=== PATIENT | female | born 1990 | race Caucasian/White ===

== ENCOUNTER 2016-05-12 18:23 | Emergency (ER) | payer MEDICAID, OTHER ==
[~2016-05-12] VITALS: Ht 160 cm; Wt 113.4 kg
[~2016-05-12 18:23] MED LIST: FERROUS SULFATE; FOLATE1 MG PO; MOTRIN800 MG PO; PRENATAL VITAMI1 T10 PO
[2016-05-12 18:37] VITALS: BP 113/89
--- NOTE | 2016-05-12 20:01 | NUR ---
PATIENT PRESENTS TO ED WITH COUGH NON-PRODUCTIVE FOR 3 WEEKS RADIATES TO THE UPPER BACK 9/10 PAIN . PT DENIES N/V/D; SKIN IS PINK/WARM/DRY; AAOX4 WITH EVEN AND STEADY GAIT; LUNGS CLEAR BL; HR EVEN AND REGULAR; PT DENIES ANY FEVER, CP, SOB, AT THIS TIME; PATIENT STATES PAIN OF 9/10 AT THIS TIME; VSS; PATIENT POSITIONED FOR COMFORT; HOB ELEVATED; BEDRAILS UP X2; BED DOWN. ER MD MADE AWARE OF PT STATUS.
--- NOTE | 2016-05-12 20:30 | NUR ---
Dr. Chavez evaluating patient at bedside.
[2016-05-12] MEDS ORDERED: predniSONE 20 MG TAB PO ONE (20:35)
[2016-05-12] MEDS ORDERED: ACETAMIN/CODEINE 120/12MG-5ML 5 ML UDC PO ONE (20:35)
[2016-05-12 21:00] VITALS: BP 114/77
--- NOTE | 2016-05-12 21:00 | NUR ---
Patient discharged with v/s stable. Written and verbal after care instructions given and explained. Patient alert, oriented and verbalized understanding of instructions. Ambulatory with steady gait. All questions addressed prior to discharge. ID band removed. Patient advised to follow up with PMD. Rx of GUAIATUSSIN AC LIQ AND PREDISONE 50MG given. Patient educated on indication of medication including possible reaction and side effects. Opportunity to ask questions provided and answered. Addendum: 05/12/16 at 2102 by MEDND Patient discharged with v/s stable. Written and verbal after care instructions given and explained. Patient alert, oriented and verbalized understanding of instructions. Ambulatory with steady gait. All questions addressed prior to discharge. ID band removed. Patient advised to follow up with PMD. Rx of GUAIATUSSIN AC LIQ AND PREDISONE 50MG given. Patient educated on indication of medication including possible reaction and side effects. Opportunity to ask questions provided and answered. PT STATE SHE IS ALERT AND ORIENTED, PT DENIES FEELING ANY SENSATION OF SLEEPINESS OR DROWSINESS, PT STATES SHE IS ABLE TO DRIVE HOME SAFELY. PT IS ABLE TO VERIFY NAME, , LOCATION HERE AT [facility], AND DATE AND TIME, ER MD DR QUINTERO AWARE
== END 2016-05-12 21:00 | disposition home or self-care (01) ==
LOC: MED 18:31
DX: J20.9 Acute bronchitis, unspecified (principal); Z88.0 Allergy status to penicillin
CPT/HCPCS: 71020; 99284; J7512

== ENCOUNTER 2016-07-27 07:20 | Emergency (ER) | payer MEDICAID ==
[~2016-07-27] VITALS: Ht 157.5 cm; Wt 113.4 kg
[~2016-07-27 07:20] MED LIST changes: -FERROUS SULFATE; -FOLATE1 MG PO; +FOLI1TAB19 PO; +IBUP-974 PO; -MOTRIN800 MG PO; +PREN-385 PO; -PRENATAL VITAMI1 T10 PO
[2016-07-27 07:39] VITALS: BP 121/83
--- NOTE | 2016-07-27 07:39 | NUR ---
PT TO BED 7.
--- NOTE | 2016-07-27 07:42 | NUR ---
Dr. Rivers evaluating patient at bedside.
--- NOTE | 2016-07-27 07:44 | NUR ---
PT TRANSFERRED TO BED 8 FOR CRAPS MANAGER BED.
--- NOTE | 2016-07-27 07:57 | NUR ---
PT STATES VAGINAL BLEEDING SINCE 3AM. PT 6WKS . DENIES PAIN. DENIES PMH. NKDA. DENIES N/V/D; SKIN IS PINK/WARM/DRY; AAOX4 WITH EVEN AND STEADY GAIT; LUNGS CLEAR BL; HR EVEN AND REGULAR; PT DENIES ANY FEVER, CP, SOB, OR COUGH AT THIS TIME; PATIENT STATES PAIN OF 0/10 AT THIS TIME; VSS; PATIENT POSITIONED FOR COMFORT; HOB ELEVATED; BEDRAILS UP X2; BED DOWN. ER MD MADE AWARE OF PT STATUS.
--- NOTE | 2016-07-27 07:59 | NUR ---
Giancarlo rincon in [facility] - 07/27/16 at 0759 by CHARLESZ PT LEFT FOR US PER TECH
--- NOTE | 2016-07-27 07:59 | NUR ---
Patient taken to US via wheelchair per tech.
[2016-07-27 08:02] LABS: APPEARANCE,URINE HAZY (CLEAR); BILIRUBIN,URINE NEGATIVE (NEGATIVE); BLOOD, URINE 3+ (NEGATIVE); COLOR,URINE RED (YELLOW); LEUKOCYTE ESTERASE ,URINE NEGATIVE (NEGATIVE); NITRITE, URINE NEGATIVE (NEGATIVE); PROTEIN,URINE NEGATIVE (NEGATIVE); UGLUCOSE NEGATIVE (NEGATIVE); UROBILINOGEN,URINE 0.2 EU/dL (0.2 - 1)
--- NOTE | 2016-07-27 08:18 | NUR ---
Giancarlo rincon in [facility] - 07/27/16 at 0819 by TUAN PT BACK TO BED 8 VIA WHEELCHAIR.
--- NOTE | 2016-07-27 08:18 | NUR ---
Patient back from US via wheelchair per tech.
[2016-07-27 08:21] LABS: BASOPHILS # (AUTO) 0.2 K/uL (0.00-0.22); BASOPHILS % (AUTO) 1.9 % (0.0-2.0); EOSINOPHILS # (AUTO) 0.2 K/uL (0-0.4); EOSINOPHILS % (AUTO) 1.6 % (0.0-4.0); HEMATOCRIT 37.1 % (36-48); HEMOGLOBIN 11.4 g/dL (12.0-16.0); LYMPHOCYTES # (AUTO) 3.2 K/uL (2.5-16.5); LYMPHOCYTES % (AUTO) 30.2 % (20.5-51.1); MEAN CORPUSCULAR HEMOGLOBIN 22 pg (27-31); MEAN CORPUSCULAR HGB CONC 31 g/dL (33-37); MEAN CORPUSCULAR VOLUME 70 fL (80-94); MONOCYTES # (AUTO) 0.5 K/uL (0.8-1.0); MONOCYTES % (AUTO) 4.5 % (1.7-9.3); NEUTROPHILS # (AUTO) 6.4 K/uL (1.8-7.7); NEUTROPHILS % (AUTO) 61.8 % (42.2-75.2); PLATELET COUNT (AUTO) 303 K/uL (140-450); RED CELL DISTRIBUTION WIDTH 14.7 % (11.6-13.7); WHITE BLOOD COUNT (AUTO) 10.5 K/uL (4.8-10.8)
[2016-07-27 08:37] LABS: BACTERIA,URINE 0-2 (RARE) /HPF (None Seen); RBC,URINE >100 /HPF (0-5); WBC,URINE 0-5 (RARE) /HPF (0-5)
--- NOTE | 2016-07-27 09:15 | NUR ---
AT BEDSIDE TO EXPLAIAIN TO PT SHE HAS MISCARRIAGE.
[2016-07-27 09:36] VITALS: BP 125/80
--- NOTE | 2016-07-27 09:36 | NUR ---
Patient discharged with v/s stable. Written and verbal after care instructions given and explained. Patient verbalized understanding. Ambulatory with steady gait. All questions addressed prior to discharge. Advised to follow up with PMD.
== END 2016-07-27 09:36 | disposition home or self-care (01) ==
LOC: MED 07:20
DX: O03.9 Complete or unspecified spontaneous abortion without complication (principal); Z3A.01 Less than 8 weeks gestation of pregnancy
CPT/HCPCS: 36415; 76817; 81001; 81025; 84702; 85025; 86900; 86901; 99285

== ENCOUNTER 2020-08-11 18:19 | Emergency (ER) | payer MEDICAID ==
[~2020-08-11] VITALS: Ht 160 cm; Wt 114.3 kg
[~2020-08-11 18:19] MED LIST changes: +ACET-9527 PO; +FERR325E14 PO; -FOLI1TAB19 PO; -IBUP-974 PO; +LEVO750T51 PO; -PREN-385 PO
[2020-08-11 18:30] VITALS: BP 132/76
--- NOTE | 2020-08-11 18:46 | NUR ---
C/O GENERALIZED ABDOMINAL PAIN SINCE THIS AM RADIATING TO BACK; RAN OUT OF PAIN MEDICATION YESTERDAY HX APPENDECTOMY 08/05/20 DR. BRICEÑO
--- NOTE | 2020-08-11 19:00 | NUR ---
Dr. Lund at the bedside evaluating patient.
[2020-08-11] MEDS ORDERED: MORPHINE SULFATE 4 MG/ML SYR IVP ONE (19:10)
[2020-08-11] MEDS ORDERED: NACL 0.9% 1,000 ML IV SCH (19:10)
[2020-08-11] MEDS ORDERED: ONDANSETRON 4 MG/2 ML VIAL IVP ONE (19:10)
--- NOTE | 2020-08-11 19:11 | NUR ---
Report given to CYNTHIA Juarez for continuation of care.
[2020-08-11 19:23] LABS: BILIRUBIN,URINE NEGATIVE (NEGATIVE); BLOOD, URINE 3+ (NEGATIVE); COLOR,URINE YELLOW (YELLOW); LEUKOCYTE ESTERASE ,URINE 2+ (NEGATIVE); NITRITE, URINE NEGATIVE (NEGATIVE); PH,URINE 7.5 (5.0-9.0); UGLUCOSE NEGATIVE (NEGATIVE)
[2020-08-11 19:51] LABS: BASOPHILS # (AUTO) 0.1 K/uL (0.00-0.22); BASOPHILS % (AUTO) 0.7 % (0.0-2.0); EOSINOPHILS # (AUTO) 0.2 K/uL (0-0.4); EOSINOPHILS % (AUTO) 1.2 % (0.0-4.0); HEMATOCRIT 37.7 % (36-48); LYMPHOCYTES # (AUTO) 3.3 K/uL (2.5-16.5); LYMPHOCYTES % (AUTO) 24.1 % (20.5-51.1); MEAN CORPUSCULAR HEMOGLOBIN 23 pg (27-31); MEAN CORPUSCULAR HGB CONC 32 g/dL (33-37); MEAN CORPUSCULAR VOLUME 72.1 fL (80-94); MONOCYTES # (AUTO) 0.7 K/uL (0.8-1.0); MONOCYTES % (AUTO) 5.1 % (1.7-9.3); NEUTROPHILS # (AUTO) 9.5 K/uL (1.8-7.7); NEUTROPHILS % (AUTO) 68.9 % (42.2-75.2); PLATELET COUNT (AUTO) 240 K/uL (140-450); RED BLOOD CELL COUNT(AUTO) 5.23 MIL/uL (4.20-5.40); RED CELL DISTRIBUTION WIDTH 17.2 % (11.6-13.7); WHITE BLOOD COUNT (AUTO) 13.8 K/uL (4.8-10.8)
[2020-08-11 20:05] LABS: ANION GAP 20.8 (8-16); CARBON DIOXIDE 24.5 mmol/L (21-32); CREATININE 0.7 mg/dL (0.6-1.3); POTASSIUM 4.3 mmol/L (3.5-5.1)
[2020-08-11 20:09] LABS: APPEARANCE,URINE HAZY (CLEAR)
[2020-08-11 20:11] LABS: ALBUMIN 3.6 g/dL (3.4-5.0); TOTAL BILIRUBIN 0.3 mg/dL (0.0-1.0)
[2020-08-11 20:16] LABS: RBC,URINE 0-5 /HPF (0-5)
--- NOTE | 2020-08-11 20:20 | NUR ---
pt taken to CT via w/c
--- NOTE | 2020-08-11 20:39 | NUR ---
pt returned from CT via w/c.
[2020-08-11] MEDS ORDERED: cefTRIAXone 1,000 MG VIAL ONE (21:03)
[2020-08-11] MEDS ORDERED: CEPH-588 PO (22:25)
[2020-08-11] MEDS ORDERED: ONDA-24 SL (22:25)
[2020-08-11] MEDS ORDERED: ACET-8386 PO (22:25)
[2020-08-11] MEDS ORDERED: DOCU-299 PO (22:28)
--- NOTE | 2020-08-11 22:40 | NUR ---
IV removed, catheter intact and site benign. Applied folded 4x4 gauze and tape to stop bleeding.
--- NOTE | 2020-08-11 22:44 | NUR ---
Patient discharged with v/s stable. Written and verbal after care instructions given and explained. Patient alert, oriented and verbalized understanding of instructions. Ambulatory with steady gait. All questions addressed prior to discharge. ID band removed. Patient advised to follow up with PMD. Rx of ZOFRAN, KEFLEX, COLACE, AND NORCO given. Patient educated on indication of medication including possible reaction and side effects. Opportunity to ask questions provided and answered.
== END 2020-08-11 22:44 | disposition home or self-care (01) ==
LOC: MED 18:19
DX: N39.0 Urinary tract infection, site not specified (principal); G89.18 Other acute postprocedural pain; R10.84 Generalized abdominal pain; R42 Dizziness and giddiness; Z90.49 Acquired absence of other specified parts of digestive tract; Z79.899 Other long term (current) drug therapy; Z79.2 Long term (current) use of antibiotics; Z79.891 Long term (current) use of opiate analgesic
CPT/HCPCS: 36415; 74177; 80053; 81001; 81025; 83605; 83690; 85025; 87040; 87086; 96361; 96365; 96375; 99285; J0696; J2270; J2405; J7030; Q9967

== ENCOUNTER 2021-05-26 09:06 | Emergency (ER) | payer MEDICAID ==
[~2021-05-26] VITALS: Ht 157.5 cm; Wt 127.0 kg
[~2021-05-26 09:06] MED LIST changes: +ACET-8386 PO; -ACET-9527 PO; +CEPH-588 PO; +DOCU-299 PO; +ONDA-188 SL
[2021-05-26 09:11] VITALS: BP 128/75
--- NOTE | 2021-05-26 09:15 | NUR ---
PT ABULATED TO BED 7
--- NOTE | 2021-05-26 09:22 | NUR ---
AT PT BEDSIDE
--- NOTE | 2021-05-26 09:36 | NUR ---
31 Y/O FEMALE BIB [facility] C/O EPIGASTRIC PAIN RADIATING BURNING CONSTANT TYPE OF PAIN RATED 8/10. PAIN RADIATES TO BILATERAL FLANKS SINCE YESTERDAY. ABDOMEN IS TENDER TO TOUCH. PT DENIES VOMITING,DIARRHEA, FEVERS. PT DENIES SOB, CHEST PAIN, FEVER OR CHILLS. BED IN LOWEST POSITION. BED RAIL X1. PT ALERT AND ORIENTED X4. MEDHX: DENIES ALLERGIES: NKA
[2021-05-26] MEDS ORDERED: KETOROLAC 60 MG/2 ML VIAL IM ONE (09:40)
[2021-05-26] MEDS ORDERED: ONDANSETRON 4 MG ODT PO ONE (09:40)
[2021-05-26] MEDS ORDERED: DICYCLOMINE HCL LIQUID 20 MG, ALUMINUM HYD/MAG/SIMETHICONE 30 ML, LIDOCAINE VISCOUS 2% ... PO ONE ×3 (09:40)
[2021-05-26] MEDS ORDERED: DICYCLOMINE HCL LIQUID 10 MG/5 ML UDC ONE (09:46)
[2021-05-26] MEDS ORDERED: ALUMINUM HYD/MAG/SIMETHICONE 30 ML UDC ONE (09:46)
[2021-05-26] MEDS ORDERED: ONDA8TAB87 PO (09:59)
[2021-05-26] MEDS ORDERED: OMEP40EC24 PO (09:59)
[2021-05-26] MEDS ORDERED: IBUP-2213 PO (09:59)
[2021-05-26 10:56] VITALS: BP 128/75
--- NOTE | 2021-05-26 10:58 | NUR ---
Patient discharged with v/s stable. Written and verbal after care instructions given and explained. Patient alert, oriented and verbalized understanding of instructions. Ambulatory with steady gait. All questions addressed prior to discharge. ID band removed. Patient advised to follow up with PMD. Rx of IBUPROFEN, PRILOSAC, ZOFRAN given. Patient educated on indication of medication including possible reaction and side effects. Opportunity to ask questions provided and answered.
== END 2021-05-26 10:56 | disposition home or self-care (01) ==
LOC: MED 09:06
DX: R10.13 Epigastric pain (principal); R11.0 Nausea; R07.9 Chest pain, unspecified; Z79.899 Other long term (current) drug therapy; Z90.49 Acquired absence of other specified parts of digestive tract
CPT/HCPCS: 81002; 81025; 96372; 99283; J1885; Q0162

== ENCOUNTER 2021-09-28 07:48 | Emergency (ER) | payer MEDICAID ==
[~2021-09-28] VITALS: Ht 157.5 cm; Wt 126.1 kg
[~2021-09-28 07:48] MED LIST changes: +IBUP-2213 PO; -LEVO750T51 PO; +LEVO750T75 PO; +OMEP40EC24 PO; +ONDA8TAB87 PO
[2021-09-28 07:51] VITALS: BP 120/96
--- NOTE | 2021-09-28 07:59 | NUR ---
PATIENT AMBULATED TO BED 8.
--- NOTE | 2021-09-28 08:06 | NUR ---
Dr. Julian evaluating patient at bedside.
--- NOTE | 2021-09-28 08:21 | NUR ---
Radiology at bedside.
[2021-09-28] MEDS: KETOROLAC 60 MG/2 ML VIAL IM ONE (08:28)
[2021-09-28] MEDS ORDERED: CYCL-711 PO (08:33)
[2021-09-28] MEDS ORDERED: NAPR-54 PO (08:33)
[2021-09-28] MEDS ORDERED: LID5T TP (08:33)
--- NOTE | 2021-09-28 08:50 | NUR ---
Patient discharged with v/s stable. Written and verbal after care instructions given. Patient alert, oriented and verbalized understanding of instructions. Ambulatory with steady gait. All questions addressed prior to discharge. ID band removed. Patient advised to follow up with PMD. Rx of Flexeril, Lidoderm and Naproxen given. Opportunity to ask questions provided and answered.
--- NOTE | 2021-09-28 08:51 | NUR ---
Chart checked and completed. The patient's care was reviewed and supervised by Keara Mena RN.
== END 2021-09-28 08:50 | disposition home or self-care (01) ==
LOC: MED 07:48
DX: S29.012A Strain of muscle and tendon of back wall of thorax, initial encounter (principal); S29.019A Strain of muscle and tendon of unspecified wall of thorax, initial encounter; R07.81 Pleurodynia; Z79.899 Other long term (current) drug therapy; Z90.49 Acquired absence of other specified parts of digestive tract; X58.XXXA Exposure to other specified factors, initial encounter; Y93.89 Activity, other specified; Y92.89 Other specified places as the place of occurrence of the external cause; Y99.8 Other external cause status
CPT/HCPCS: 71045; 81025; 96372; 99283; J1885; Q0092

== ENCOUNTER 2022-02-25 22:17 | Emergency (ER) | payer MEDICAID ==
[~2022-02-25] VITALS: Ht 157.5 cm; Wt 124.7 kg
[~2022-02-25 22:17] MED LIST changes: -ACET-8386 PO; +ACET-8905 PO; +CYCL-711 PO; +LID5T TP; +NAPR-54 PO
[2022-02-25 22:28] VITALS: BP 124/85
--- NOTE | 2022-02-25 22:29 | NUR ---
SEEN AND EXAMINED BY FABIO
--- NOTE | 2022-02-25 22:31 | NUR ---
TO LOBBY A/W BED AMBULATORY
[2022-02-25] MEDS ORDERED: KETOROLAC 60 MG/2 ML VIAL IM ONE (22:35)
[2022-02-25] MEDS ORDERED: NAPR-54 PO (23:03)
--- NOTE | 2022-02-25 23:14 | NUR ---
PT CLEARED FOR D/C. ALL D/C INSTRUCTIONS AND MEDICATION INFORMATION PROVIDED BY DR. INFANTE. RX OF NAPROSYN GIVEN
== END 2022-02-25 23:14 | disposition home or self-care (01) ==
LOC: MED 22:17
DX: M43.6 Torticollis (principal)
CPT/HCPCS: 96372; 99283; J1885

== ENCOUNTER 2022-05-17 19:52 | Emergency (ER) | payer MEDICAID ==
[~2022-05-17] VITALS: Ht 157.5 cm; Wt 129.7 kg
[2022-05-17 19:56] VITALS: BP 131/82
[2022-05-17 20:05] VITALS: BP 131/82
--- NOTE | 2022-05-17 21:25 | NUR ---
COVID-19, flu and strep A swabs collected and sent to lab.
--- NOTE | 2022-05-17 22:34 | NUR ---
PT TAKEN TO BED 2
[2022-05-17] MEDS ORDERED: KETOROLAC 30 MG/ML VIAL IM ONE (22:50)
[2022-05-17] MEDS ORDERED: DEXAMETHASONE 10 MG/ML VIAL PO ONE (22:50)
[2022-05-17] MEDS ORDERED: AMOX500C25 PO (22:54)
[2022-05-17] MEDS ORDERED: ROBAC PO (22:54)
[2022-05-17] MEDS ORDERED: NAPR-54 PO (22:54)
--- NOTE | 2022-05-17 23:06 | NUR ---
Patient discharged with v/s stable. Written and verbal after care instructions given and explained. Patient verbalized understanding. Ambulatory with to car. All questions addressed prior to discharge. Advised to follow up with PMD.
== END 2022-05-17 23:06 | disposition home or self-care (01) ==
LOC: MED 19:52
DX: J02.9 Acute pharyngitis, unspecified (principal); Z20.822 Contact with and (suspected) exposure to COVID-19; Z79.899 Other long term (current) drug therapy
CPT/HCPCS: 87081; 87426; 87804; 96372; 99283; J1100; J1885

== ENCOUNTER 2022-07-03 22:38 | Emergency (ER) | payer MEDICAID ==
[~2022-07-03] VITALS: Ht 157.5 cm; Wt 127.9 kg
[~2022-07-03 22:38] MED LIST changes: +AMOX500C25 PO; +ROBAC PO
[2022-07-03 22:55] VITALS: BP 140/83
--- NOTE | 2022-07-03 23:02 | NUR ---
Pt triaged and placed in WR; no acute signs of distress at this time.
[2022-07-03 23:59] LABS: BASOPHILS # (AUTO) 0.1 K/uL (0.00-0.22); BASOPHILS % (AUTO) 0.9 % (0.0-2.0); EOSINOPHILS # (AUTO) 0.2 K/uL (0-0.4); EOSINOPHILS % (AUTO) 1.7 % (0.0-4.0); HEMATOCRIT 33.7 % (36-48); HEMOGLOBIN 10.9 g/dL (12.0-16.0); LYMPHOCYTES # (AUTO) 4.2 K/uL (2.5-16.5); LYMPHOCYTES % (AUTO) 32.2 % (20.5-51.1); MEAN CORPUSCULAR HEMOGLOBIN 24 pg (27-31); MEAN CORPUSCULAR HGB CONC 32 g/dL (33-37); MEAN CORPUSCULAR VOLUME 73.6 fL (80-94); MONOCYTES # (AUTO) 0.7 K/uL (0.8-1.0); MONOCYTES % (AUTO) 5.4 % (1.7-9.3); NEUTROPHILS # (AUTO) 7.8 K/uL (1.8-7.7); NEUTROPHILS % (AUTO) 59.8 % (42.2-75.2); PLATELET COUNT (AUTO) 258 K/uL (140-450); RED BLOOD CELL COUNT(AUTO) 4.58 MIL/uL (4.20-5.40); RED CELL DISTRIBUTION WIDTH 15.2 % (11.6-13.7); WHITE BLOOD COUNT (AUTO) 13.1 K/uL (4.8-10.8)
[2022-07-04 01:09] LABS: ANION GAP 12.4 (8-16); POTASSIUM 3.4 mmol/L (3.5-5.1)
[2022-07-04 01:10] LABS: CREATININE 0.8 mg/dL (0.6-1.3); TOTAL BILIRUBIN 0.3 mg/dL (0.0-1.0)
[2022-07-04 01:11] LABS: ALBUMIN 3.6 g/dL (3.4-5.0)
--- NOTE | 2022-07-04 03:46 | NUR ---
PT CLEARED FOR D/C BY DR. INFANTE. ALL D/C INSTRUCTIONS VERBALIZED TO PT BY DR. INFANTE.
== END 2022-07-04 03:46 | disposition home or self-care (01) ==
LOC: MED 22:38
DX: O46.91 Antepartum hemorrhage, unspecified, first trimester (principal); Z3A.01 Less than 8 weeks gestation of pregnancy; Z79.899 Other long term (current) drug therapy; Z79.2 Long term (current) use of antibiotics; Z79.1 Long term (current) use of non-steroidal anti-inflammatories (NSAID)
CPT/HCPCS: 36415; 76801; 80053; 84702; 85025; 86900; 86901; 99284; Q0092